=== PATIENT | female | born 1995 | race Caucasian/White ===

== ENCOUNTER 2016-05-24 11:57 | Emergency (ER) | payer OTHER | END 2016-05-24 12:16 | disposition left against medical advice (07) | LOC: UCEAST 11:57 | DX: S99.929A Unspecified injury of unspecified foot, initial encounter (principal); X58.XXXA Exposure to other specified factors, initial encounter; Y93.9 Activity, unspecified; Y92.9 Unspecified place or not applicable; Z53.21 Procedure and treatment not carried out due to patient leaving prior to being seen by health care provider ==

== ENCOUNTER 2016-05-24 12:05 | Emergency (ER) | payer OTHER ==
--- NOTE | 2016-05-24 14:43 | RAD ---
INDICATION: Left foot injury. TECHNIQUE: 3 views of the left foot were obtained. FINDINGS: The bones are in normal alignment. No fracture is seen. Joint spaces appear maintained. IMPRESSION: NO EVIDENCE FOR FRACTURE.
--- NOTE | 2016-05-24 15:23 | UC ---
Lower Extremity/Ankle HPI - HPI Summary HPI Summary: 21 yo F dropped a 45 lb weight on her foot, her great toe, accidentally yesterday at the gym. Able to bear weight with her toe up. Rates the pain a 9, took tylenol at 0800am. - History of Current Complaint Chief Complaint: UCLowerExtremity Stated Complaint: BIG TOE INJURY Time Seen by Provider: 05/24/16 14:28 Hx Obtained From: Patient Hx Last Menstrual Period: last month ?: No Onset/Duration: Sudden Onset, Lasting Days, Still Present Severity Initially: Severe Severity Currently: Severe Pain Intensity: 9 Pain Scale Used: 0-10 Numeric Aggravating Factor(s): Standing, Ambulation Alleviating Factor(s): Nothing Able to Bear Weight: Yes - with difficulty and pain - Allergies/Home Medications Allergies/Adverse Reactions: Allergies Allergy/AdvReac Type Severity Reaction Status Date / Time No Known Allergies Allergy Verified 05/24/16 14:14 Home Medications: Home Medications Acetaminophen TAB* [Tylenol TAB*] 650 mg PO Q24H PRN 05/24/16 [History Confirmed 05/24/16] PMH/Surg Hx/FS Hx/Imm Hx Previously Healthy: Yes Respiratory History Of: Denies: Asthma GI/ History Of: Denies: Gastroesophageal Reflux - Surgical History Surgical History: Yes Surgery Procedure, Year, and Place: t/a - Family History Known Family History: Positive: Hypertension - Social History Occupation: Student - [employer] [place] Lives: Alone Alcohol Use: Rare Substance Use Type: None Smoking Status (MU): Never Smoked Tobacco Have You Smoked in the Last Year: No Review of Systems Constitutional: Negative Skin: Negative Eyes: Negative ENT: Negative Respiratory: Negative Cardiovascular: Negative Gastrointestinal: Negative Genitourinary: Negative Motor: Negative Neurovascular: Negative Musculoskeletal: Arthralgia Neurological: Negative Psychological: Negative All Other Systems Reviewed And Are Negative: Yes Physical Exam Triage Information Reviewed: Yes Appearance: Well-Appearing, Well-Nourished, Pain Distress Vital Signs: Initial Vital Signs Temp 99.2 F 05/24/16 14:05 Pulse 49 05/24/16 14:05 Resp 20 05/24/16 14:05 BP 115/80 05/24/16 14:05 bradycardia noted, usual resting pulse Vital Signs Reviewed: Yes Eyes: Positive: Conjunctiva Clear ENT: Positive: Normal ENT inspection, Hearing grossly normal. Negative: Muffled /hoarse voice Neck: Positive: Supple Respiratory: Positive: No respiratory distress Cardiovascular: Positive: Pulses Normal, Brisk Capillary Refill, Bradycardia Musculoskeletal: Positive: Strength Intact, ROM Intact, Other: - left great toe with 100% subungual hematoma Neurological: Positive: Alert, Muscle Tone Normal Psychological Exam: Normal Skin Exam: Normal Procedures - Nail Trepanation Nail Trepanation Location: left great toe. Consent obtained. Sterile procedure. Method of Drainage: nail cauterized - Pt tolerated, but was tearful and cried in pain while using pressure to drain a moderate amount of blood. Nail is loose , and causes greatest pain with pressure at cuticle. Sterile Dressing Applied: Yes Lower Extremity Course/Dx - Course Course Of Treatment: Because of pt's degree of pain with the nail trepanation, and the loose great toe, and pt is eager to get back to full physical activity, because she is training for a competition, will refer to podiatry now. Podiatry accepts pt as a patient right now. Ibuprofen given and sterile dressing and post op shoe applied. - Differential Dx/Diagnosis Differential Diagnosis/HQI/PQRI: Cellulitis, Contusion, Fracture (Closed), Subungual Hematoma Provider Diagnoses: subungual hematoma s/p nail trepanation. contusion left great toe Discharge - Discharge Plan Condition: Stable Disposition: HOME Prescriptions: HYDROcodone/ACETAMIN 5-325 MG* [[place] 5-325 TAB*] 1 tab PO Q6H PRN #6 tab MDD 4 PRN Reason: Pain Patient Education Materials: Subungual Hematoma (ED) Forms: *Physical Education Release Referrals: Matheus Evans DPM [Doctor of Podiatric Medicine] - Non Staff,Doctor [Primary Care Provider] - (Please go to [address] [place] [phone] NOW)
[2016-05-24] MEDS ORDERED: Ibuprofen TAB* 400 MG PO ONE (16:06)
[2016-05-24 16:16] VITALS: BP 127/81
== END 2016-05-24 16:11 | disposition home or self-care (01) ==
LOC: UCCORT 12:05
DX: S90.212A Contusion of left great toe with damage to nail, initial encounter (principal); W20.8XXA Other cause of strike by thrown, projected or falling object, initial encounter; Y93.B3 Activity, free weights; Y92.9 Unspecified place or not applicable
CPT/HCPCS: 11740; 99213; A9270-GY; G0463